=== PATIENT | female | born 1970 | race Caucasian/White ===

== ENCOUNTER 2017-05-03 12:44 | Day surgery (SDC) | payer OTHER ==
[~2017-05-03] VITALS: Ht 157.5 cm; Wt 84.6 kg
[2017-05-03 14:17] VITALS: Ht 157.5 cm; Wt 84.6 kg
[2017-05-03] MEDS ORDERED: IRON PO (14:37)
[2017-05-03] MEDS ORDERED: THYROID MED PO (14:37)
[2017-05-03 16:00] VITALS: BP 153/70; PULSE 86; RESP 14
[2017-05-03] MEDS ORDERED: MIDAZOLAM 1 MG/ML 2 ML INJ ONE ×4 (16:40)
[2017-05-03] MEDS ORDERED: FENTAnyl 50 MCG/ML VIAL ONE (16:40)
[2017-05-03 16:58] VITALS: BP 140/73; RESP 20
--- NOTE | 2017-05-06 17:07 | OPR ---
Date/Time of Note Date/Time of Note DATE: 05/06/17 TIME: 17:05 Operative Report Preoperative Diagnosis * Anemia Postoperative Diagnosis Impression: * Normal colonic mucosa to cecum * Moderate-sized internal hemorrhoids Plan: * Continue present regimen * Annual Hemoccult stool testing * Colonoscopy in 10 years . Operation/Procedure Performed * Colonoscopy Surgeon: JUAN JOSE BEYER MD Anesthesia: MAC Estimated Blood Loss: none Specimens * None Grafts/Implants * None Complications: None JUAN JOSE BEYER MD May 06, 2017 17:06
--- NOTE | 2017-05-06 17:08 | OPR ---
Date/Time of Note Date/Time of Note DATE: 05/06/17 TIME: 17:07 Operative Report Preoperative Diagnosis * Anemia Postoperative Diagnosis Impression: * 1 cm pedunculated polyp distal esophagus. Snared and retrieved * Ulcerated esophagitis * Moderate gastritis rule out H. pylori infection biopsies obtained Plan: * PPI twice daily * Review pathology as soon as available * Repeat EGD in 8 weeks to assess healing . . Operation/Procedure Performed * EGD with snare polypectomy * EGD with biopsies Surgeon: JUAN JOSE BEYER MD Anesthesia: MAC Estimated Blood Loss: none Specimens * Esophageal polyp * Gastric antrum Grafts/Implants * None Complications: None JUAN JOSE BEYER MD May 06, 2017 17:08
== END 2017-05-03 18:02 | disposition home or self-care (01) ==
LOC: GIL 12:44
PROVIDERS: ATTEND Internal Medicine Gastroenterology
DX: K22.10 Ulcer of esophagus without bleeding (principal); K29.50 Unspecified chronic gastritis without bleeding; K64.8 Other hemorrhoids; D64.9 Anemia, unspecified
CPT/HCPCS: 43239; 45378; 84703; 88305; 88312; J2250; J3010; Z7610

== ENCOUNTER 2017-07-31 13:23 | Day surgery (SDC) | payer OTHER ==
[~2017-07-31] VITALS: Ht 157.5 cm; Wt 85.3 kg
[~2017-07-31 13:23] MED LIST: IRON PO; THYROID MED PO
[2017-07-31 14:37] VITALS: Ht 157.5 cm; Wt 85.3 kg
[2017-07-31] MEDS ORDERED: PANT20TA3 PO (14:45)
[2017-07-31 17:21] VITALS: BP 139/71; PULSE 78; RESP 16
[2017-07-31] MEDS ORDERED: MIDAZOLAM 1 MG/ML 2 ML INJ ONE ×2 (17:53)
[2017-07-31] MEDS ORDERED: FENTAnyl 50 MCG/ML VIAL ONE (17:53)
--- NOTE | 2017-07-31 17:55 | OPPN ---
Date/Time of Note Date/Time of Note DATE: 07/31/17 TIME: 17:51 Proc Note GI Procedure Date 07/31/17 Indication: other (History of esophageal ulcer) Pre-procedure Diagnosis History of esophageal ulcer Post-procedure Diagnosis Impression Healed esophageal ulcer Moderate distal esophagitis. Rule out Prado's esophagus. Biopsies obtained Mild gastritis. Rule out H. pylori infection. Biopsies obtained Otherwise normal EGD Plan: Continue PPI therapy Review pathology as soon as available Follow-up as previously scheduled . Procedure Performed: Other (EGD with biopsies) Surgeon JUAN JOSE BEYER MD See signature line [employer] Tester none Anesthesia Type: moderate sedation (Versed 4 mg/fentanyl 75 mcg) Tourniquet Time none EBL none Transfusion required none Biopsy 1: Gastric body and antrum/rule out H. pylori infection Biopsy 2: Distal esophagus/rule out Prado's esophagus Grafts/Implants none Tubes/Drains none Complication(s) none Disposition: home Procedure Description Preoperative Diagnosis: After informed consent, with the patient/relatives understanding the procedure, its indications, potential risks and complications, including but not limited to : allergic reaction, bleeding, perforation or infection, and after all pertinent questions were answered to the patients satisfaction, the patient/ relatives signed witnessed informed consent. Following this, premedication was administered slowly IV push under careful cardiovascular and respiratory monitoring with pulse oximetry, automatic blood pressure, and hall monitor. Once the sedative effect was achieved the patient was place in the left lateral decubitus, the panendoscope was introduced and advanced under visual control. Careful examination of the upper gastrointestinal tract, both on insertion as well as withdrawal of the instrument disclosing the following findings: ESOPHAGUS: the mucosa of the entire esophagus was carefully examined and showed the following findings: The noted ulceration is completely healed. There is residual erythema edema and superficial erosion of the mucosa. Biopsies were obtained to rule out Prado's esophagus. Otherwise the mucosa appears within normal limits. There is no evidence of varices, neoplasm, or stricture. No Hiatal Hernia identified. STOMACH: Upon entrance to the stomach air was insufflated, the gastric olguin distended normally. The mucosa of the fundus, body and antrum of the stomach was carefully examined both head-on and on retroflexion, and showed the following findings: There is mild erythema and edema of the mucosa of the antrum. Biopsies were obtained to rule out H. pylori infection. Otherwise the mucosa appears within normal limits with no abnormalities. There is no evidence of ulcers or neoplasm. PYLORUS: The pylorus was carefully examined and showed the following findings: the pylorus appears patent and within normal limits, with no evidence of gastric outlet obstruction. DUODENUM: The duodenal mucosa was carefully examined in the duodenal bulb as well as the second portion of the duodenum and showed the following findings: the mucosa appears unremarkable with no evidence of duodenitis, ulcer or neoplasm. Copies To: CC: JUAN JOSE BEYER MD, MORDO MD Jul 31, 2017 17:55
== END 2017-07-31 18:10 | disposition home or self-care (01) ==
LOC: GIL 13:23
PROVIDERS: ATTEND Internal Medicine Gastroenterology
DX: K22.10 Ulcer of esophagus without bleeding (principal); K29.50 Unspecified chronic gastritis without bleeding; A04.8 Other specified bacterial intestinal infections; K64.8 Other hemorrhoids; E07.9 Disorder of thyroid, unspecified; E78.00 Pure hypercholesterolemia, unspecified; K21.0 Gastro-esophageal reflux disease with esophagitis
CPT/HCPCS: 43239; 84703; 88305; 88312; 88313; J2250; J3010; Z7610